=== PATIENT | female | born 1940 | race Caucasian/White ===

== ENCOUNTER 2021-10-03 13:37 | Emergency (ER) | payer OTHER ==
[~2021-10-03] VITALS: Ht 157.5 cm; Wt 54.4 kg
[2021-10-03 14:09] VITALS: BP_SYST 137
--- NOTE | 2021-10-03 14:16 | NUR ---
BIB BLS FROM [facility] WITH C/C OF PT PULLING OUT G-TUBE THIS AM. OLD G-TUBE NOT SENT WITH PT. PT A/O X 1, SLOVENIAN SPEAKING. PT PLACED IN BED 5, PENDING DR. CARABALLO TO ASSESS.
--- NOTE | 2021-10-03 14:39 | NUR ---
ER at bedside examining patient.
[2021-10-03] MEDS ORDERED: LORazepam 2 MG/ML VIAL ONE (14:50)
--- NOTE | 2021-10-03 14:53 | NUR ---
New G-Tube has been placed by Dr. Nunez. Dr. Nunez also gave verbal order of Ativan 2mg IM to be given.
[2021-10-03] MEDS ORDERED: GASTROGRAFIN 120 ML ONE (15:04)
--- NOTE | 2021-10-03 15:06 | NUR ---
X-Ray being done at bedside.
[2021-10-03] MEDS ORDERED: LORazepam 2 MG/ML VIAL IM ONE (15:15)
[2021-10-03 18:07] LABS: BASOPHILS # (AUTO) 0.1 K/uL (0.0-0.2); BASOPHILS % (AUTO) 0.8 % (0.0-2.0); EOSINOPHILS # (AUTO) 0.1 K/uL (0.0-0.4); EOSINOPHILS % (AUTO) 1.2 % (0.0-4.0); HEMATOCRIT 42.2 % (36-48); HEMOGLOBIN 13.5 g/dL (12.0-16.0); LYMPHOCYTES # (AUTO) 3.1 K/uL (1.0-5.5); LYMPHOCYTES % (AUTO) 35.8 % (20.5-51.5); MEAN CORPUSCULAR HEMOGLOBIN 27 pg (27-31); MEAN CORPUSCULAR HGB CONC 32 % (32-36); MEAN CORPUSCULAR VOLUME 85 fL (79.0-98.0); MONOCYTES # (AUTO) 0.5 K/uL (0.0-1.0); MONOCYTES % (AUTO) 6.1 % (1.7-9.3); NEUTROPHILS # (AUTO) 4.9 K/uL (1.8-7.7); NEUTROPHILS % (AUTO) 56.1 % (40.0-70.0); PLATELET COUNT (AUTO) 292 K/uL (130-430); RED BLOOD CELL COUNT(AUTO) 4.97 MIL/uL (4.2-6.2); RED CELL DISTRIBUTION WIDTH 20.9 % (9.0-15.0); WHITE BLOOD COUNT (AUTO) 8.7 K/uL (4.8-10.8)
[2021-10-03 18:15] LABS: ANION GAP 10 (5-15); CALCIUM 10.5 mg/dL (8.4-11.0); CHLORIDE 104 mmol/L (98-107); CREATININE 0.85 mg/dL (0.55-1.30); GLUCOSE 131 mg/dL (70-99); SODIUM SERUM 142 mmol/L (136-145); UREA NITROGEN, BLOOD 24 mg/dL (8-21)
[2021-10-03 18:18] LABS: PROTHROMBIN TIME 10.5 SECS (9.5-12.5)
[2021-10-03 18:22] LABS: ALANINE AMINOTRANSFERASE 12 U/L (12-78); ALBUMIN 3.7 g/dL (3.4-4.8); ASPARTATE AMINOTRANSFERASE 25 U/L (10-37); TOTAL BILIRUBIN 0.4 mg/dL (0.0-1.0)
--- NOTE | 2021-10-03 22:11 | NUR ---
pt is awake,alert, confused. doesn't follow simple commands. no s/s of pain. afebrile. w/ f/c intact constantly draining urine, adequate output. incontinent care provided. GT intact, w/ abdominal binder applied at all times. pt is cleared by MD for d/c. pt is picked up [facility] field [facility]. pt left in stable condition.
[2021-10-03 22:26] VITALS: BP_SYST 118
== END 2021-10-03 22:26 | disposition home or self-care (01) ==
LOC: SED 13:37
DX: Z43.1 Encounter for attention to gastrostomy (principal); Z79.899 Other long term (current) drug therapy
CPT/HCPCS: 99284; 43762; 80053; 85025; 85610; 85730; 84484; 36415; 74240; 96372; J2060; Q9963